=== PATIENT | female | born 1985 | race Caucasian/White ===

== ENCOUNTER 2019-02-28 17:28 | Emergency (ER) | payer SELFPAY ==
[~2019-02-28] VITALS: Ht 154.9 cm; Wt 72.6 kg
[2019-02-28] MEDS ORDERED: ACETAMINOPHEN ES 500 MG TABLET PO ONE (17:45)
[2019-02-28] MEDS ORDERED: ACETAMINOPHEN ES 500 MG TABLET ONE (17:57)
[2019-02-28] MEDS ORDERED: KETOROLAC TROMETHAMINE 30 MG INJ IM ONE (18:30)
[2019-02-28] MEDS ORDERED: KETOROLAC TROMETHAMINE 30 MG INJ ONE (18:31)
--- NOTE | 2019-02-28 18:54 | NUR ---
Patient discharged to home in stable conditon. Written and verbal after care instructions given. Patient verbalizes understanding of instructions.pt walks in steady gait.
== END 2019-02-28 18:55 | disposition home or self-care (01) ==
LOC: ER 17:30
DX: S93.402A Sprain of unspecified ligament of left ankle, initial encounter (principal); M25.531 Pain in right wrist; R51 Headache; M54.2 Cervicalgia; W18.39XA Other fall on same level, initial encounter; Y92.89 Other specified places as the place of occurrence of the external cause; Y93.89 Activity, other specified; Y99.8 Other external cause status
CPT/HCPCS: 70450; 72125; 73110; 73610; 73630; 96372; 99284; J1885; A4663; A9150